=== PATIENT | male | born 1975 | race American Indian/Alaskan Native ===

== ENCOUNTER 2017-08-17 16:08 | Inpatient (IN) | payer BC, OTHER ==
[2017-08-17 16:27] VITALS: BMI 29.1
[2017-08-17 17:12] LABS: EOS % 0.4 % (1.5-5.0); GRAN # 5.33 (1.4-6.5); GRAN % 75.2 % (50.0-68.0); HEMATOCRIT 39.6 % (42.0-52.0); LYMPH # 1.3 (1.2-3.4); LYMPH % 18.3 % (22.0-35.0); MEAN CELL VOLUME 87.4 fl (80.0-105.0); MEAN CORPUSCULAR HEMOGLOBIN 29.6 pg (25.0-35.0); MEAN CORPUSCULAR HGB CONC 33.8 g/dl (31.0-37.0); MONO # 0.4 (0.1-0.6); MONO % 6.1 % (1.0-6.0); RED CELL DISTRIBUTION WIDTH 13.3 % (11.5-14.5); WHITE BLOOD COUNT 7.1 10^3/ul (4.5-11.0)
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
[2017-08-17 17:33] LABS: ALB/GLOB RATIO 1.4 (1.1-1.8); ALKALINE PHOSPHATASE 53 U/L (38-126); ALT/SGPT 49 U/L (7-56); AST/SGOT 62 U/L (17-59); BILIRUBIN,TOTAL 1.2 mg/dL (0.2-1.3); BLOOD UREA NITROGEN 15 mg/dL (7-21); CALCIUM 8.9 mg/dL (8.4-10.5); CARBON DIOXIDE 31 mmol/L (21-33); CHLORIDE 100 mmol/L (98-107); GFR AFRICAN-AMERICAN > 60; GLUCOSE,RANDOM 110 mg/dL (70-110); POTASSIUM 3.5 mmol/L (3.6-5.0); SODIUM 141 mmol/L (132-148); TOTAL PROTEIN 7.3 g/dL (5.8-8.3)
[2017-08-17 17:44] LABS: TROPONIN I < 0.01 ng/mL
[2017-08-17] MEDS ORDERED: Sodium Chloride 0.9% 1,000 ML IV SCH ×2 (18:00→21:00)
[2017-08-17] MEDS ORDERED: Iohexol 350 MG/100 ML VIAL ONE (18:58)
--- NOTE | 2017-08-17 20:31 | CT ---
EXAM: CT Angiography Chest With Intravenous Contrast CLINICAL HISTORY: 41 years old, male; Pain; Chest pain TECHNIQUE: Axial computed tomographic angiography images of the chest with intravenous contrast using pulmonary embolism protocol. All CT scans at this facility use one or more dose reduction techniques, viz.: automated exposure control; ma/kV adjustment per patient size (including targeted exams where dose is matched to indication; i.e. head); or iterative reconstruction technique. MIP reconstructed images were created and reviewed. Coronal and sagittal reformatted images were created and reviewed. CONTRAST: 95 mL of OMNI 350 administered intravenously. COMPARISON: No relevant prior studies available. FINDINGS: Limitations: Streak artifact - mild. Motion artifact - mild. Pulmonary arteries: No definite pulmonary embolism. Aorta: No aneurysm. No dissection. Lungs: Minimal atelectasis. No consolidation. Few pulmonary nodules, up to 0.3cm. Pleural space: No significant effusion. No pneumothorax. Heart: No cardiomegaly. No significant pericardial effusion. Mediastinum: Soft tissue density within anterior mediastinum, likely residual thymus. Bones/joints: Degenerative changes of acromioclavicular joints. No acute fracture. Soft tissues: Unremarkable. Lymph nodes: No pathologically enlarged lymph nodes. IMPRESSION: 1. No definite CT evidence of pulmonary embolism. 2. Pulmonary nodules. For low-risk patients, no follow-up is necessary. For high-risk patients (smoking history or other known risk factors) an optional CT at 12 months could be performed. 3. Incidental/non-acute findings are described above.
[2017-08-17 20:40] LABS: URINE BILIRUBIN NEGATIVE (NEGATIVE); URINE BLOOD TRACE-INTACT (NEGATIVE); URINE GLUCOSE (UA) NEGATIVE (NEGATIVE); URINE KETONE NEGATIVE (NEGATIVE); URINE LEUKOCYTE ESTERASE NEGATIVE Leu/uL (NEGATIVE); URINE PROTEIN NEGATIVE mg/dL (<30 mg/dL); URINE UROBILINOGEN 0.2 E.U./dL (<1 E.U./dL)
[2017-08-17 20:52] LABS: URINE APPEARANCE CLEAR (CLEAR); URINE COLOR YELLOW (YELLOW)
[2017-08-17] MEDS ORDERED: Sodium Chloride 0.9% 1,000 ML IV STA ×2 (20:54→21:01)
[2017-08-17 20:55] LABS: URINE BACTERIA FEW (NEG); URINE RBC 0 - 2 /hpf (0-2)
[2017-08-17 21:11] LABS: INR 1.1 (0.93-1.08); PARTIAL THROMBOPLASTIN TIME 27.3 Seconds (23.7-30.8)
[2017-08-17] MEDS: Sodium Chloride 0.9% 1,000 ML IV SCH (22:39)
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
[2017-08-18 02:17] LABS: MAGNESIUM 1.9 mg/dL (1.7-2.2); PHOSPHOROUS 3.5 mg/dL (2.5-4.5)
[2017-08-18] MEDS: Sodium Chloride 0.9% 1,000 ML IV SCH ×5 (02:39→21:59)
[2017-08-18 02:50] LABS: TROPONIN I < 0.01 ng/mL
--- NOTE | 2017-08-18 07:42 | US ---
EXAM: US Abdomen Complete CLINICAL HISTORY: 41 years old, male; Pain; Abdominal pain; Other: Chest pain; Additional info: Rlq pain TECHNIQUE: Real-time ultrasound of the abdomen (complete) with image documentation. COMPARISON: No relevant prior studies available. FINDINGS: Liver: Liver is slightly enlarged measuring 18.3 CM cranial caudal. Liver echogenicity is normal. No focal liver lesions identified. No intrahepatic bile duct dilation. Gallbladder: The gallbladder is normal. No gallstones. Common bile duct: Tin bile duct is normal in caliber measuring 0.4 dose or a 0.5 CM. No stones. No dilation. Pancreas: The pancreas is normal. Kidneys: The right kidney is normal. The left kidney is normal. No stones. No hydronephrosis. Spleen: The spleen is normal. Aorta: Visualized abdominal aorta and IVC are unremarkable. Inferior vena cava: See above. IMPRESSION: No acute findings. Mild hepatomegaly.
[2017-08-18 07:50] LABS: HEMATOCRIT 39.3 % (42.0-52.0); MEAN CELL VOLUME 87.7 fl (80.0-105.0); MEAN CORPUSCULAR HEMOGLOBIN 29.2 pg (25.0-35.0); MEAN CORPUSCULAR HGB CONC 33.3 g/dl (31.0-37.0); MEAN PLATELET VOLUME 10.1 fl (7.0-11.0); RED CELL DISTRIBUTION WIDTH 13.3 % (11.5-14.5); WHITE BLOOD COUNT 4.5 10^3/ul (4.5-11.0)
[2017-08-18 08:01] LABS: ALB/GLOB RATIO 1.3 (1.1-1.8); ALKALINE PHOSPHATASE 51 U/L (38-126); ALT/SGPT 42 U/L (7-56); AST/SGOT 54 U/L (17-59); BILIRUBIN,DIRECT 0.1 mg/dL (0.0-0.4); BILIRUBIN,TOTAL 1.5 mg/dL (0.2-1.3); BLOOD UREA NITROGEN 13 mg/dL (7-21); CALCIUM 8.1 mg/dL (8.4-10.5); CARBON DIOXIDE 30 mmol/L (21-33); CHLORIDE 107 mmol/L (98-107); GFR AFRICAN-AMERICAN > 60; GLUCOSE,RANDOM 103 mg/dL (70-110); MAGNESIUM 1.9 mg/dL (1.7-2.2); PHOSPHOROUS 2.4 mg/dL (2.5-4.5); POTASSIUM 3.5 mmol/L (3.6-5.0); SODIUM 144 mmol/L (132-148); TOTAL PROTEIN 6.6 g/dL (5.8-8.3)
[2017-08-18 08:13] LABS: TROPONIN I < 0.01 ng/mL
[2017-08-18] MEDS ORDERED: Potassium Phosphate 15 MMOLE in Sodium Chloride 0.9% 250 ML IVPB ONE ×2 (09:12→15:30)
[2017-08-18] MEDS: Enoxaparin 40 mg Syringe SC SCH (09:32)
[2017-08-18] MEDS ORDERED: Potassium Phosphate 15 MMOLE in Sodium Chloride 0.9% 250 ML IVPB SCH ×2 (12:00→12:15)
--- NOTE | 2017-08-18 12:21 | CARD ---
APPROVED REPORT EKG Measurement Heart [id number] MD [id number] <Conclusion> Normal sinus rhythm Normal ECG
[2017-08-18] MEDS ORDERED: Pneumococcal 23-Valent Vaccine IM ONE (13:22)
[2017-08-18] MEDS ORDERED: Influenza Vaccine 60 mcg/0.5 mL SYR (4YR UP) IM ONE (13:22)
[2017-08-18 14:30] LABS: TROPONIN I < 0.01 ng/mL
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
--- NOTE | 2017-08-18 19:27 | CARD ---
APPROVED REPORT EXAM: Two-dimensional and M-mode echocardiogram with Doppler and color Doppler. INDICATION Chest Pain 2D DIMENSIONS Left Atrium (2D)3.9 (1.6-4.0cm)IVSd1.4 (0.7-1.1cm) LVDd4.7 (3.9-5.9cm)PWd1.2 (0.7-1.1cm) LVDs3.1 (2.5-4.0cm)FS (%) 34.3 % LVEF (%)63.1 (>50%) M-Mode DIMENSIONS Aortic Root3.10 (2.2-3.7cm)Aortic Cusp Exc.2.10 (1.5-2.0cm) Aortic Valve AoV Peak Kegozkye754.0cm/Eduin Peak GR.5mmHg Mitral Valve MV E Aewpojyf28.8cm/sMV A Bfrqfoon90.9cm/sE/A ratio1.5 TDI E/Lateral E'0.0E/Medial E'0.0 Tricuspid Valve TR Peak Onzwbkvi652ju/sRAP PRVOXWFW61ptGhUJ Peak Gr.18mmHg [id number] LEFT VENTRICLE The left ventricle is normal size. There is mild concentric left ventricular hypertrophy. The left ventricular function is normal. The left ventricular ejection fraction is within the normal range. There is normal LV segmental wall motion. Transmitral Doppler flow pattern is normal for age. RIGHT VENTRICLE The right ventricle is normal size. There is normal right ventricular wall thickness. The right ventricular systolic function is normal. ATRIA The left atrium is borderline dilated. The right atrium size is normal. AORTIC VALVE The aortic valve is mildly thickened. No aortic regurgitation is present. There is no aortic valvular stenosis. MITRAL VALVE The mitral valve is normal in structure. There is no mitral valve regurgitation noted. TRICUSPID VALVE The tricuspid valve is normal in structure. There is no tricuspid valve regurgitation noted. GREAT VESSELS The aortic root is normal in size. The IVC is dilated. The IVC collapses <50% with inspiration. PERICARDIAL EFFUSION There is no pericardial effusion. <Conclusion> The left ventricle is normal size. There is mild concentric left ventricular hypertrophy. The left ventricular function is normal. The left ventricular ejection fraction is within the normal range. There is normal LV segmental wall motion.
[2017-08-18 20:38] LABS: TROPONIN I < 0.01 ng/mL
[2017-08-19] MEDS: Enoxaparin 40 mg Syringe SC SCH (09:36)
[2017-08-19 09:41] LABS: BASO # 0.01 K/mm3 (0.0-2.0); BASO % 0.3 % (0.0-3.0); EOS # 0.1 (0.0-0.7); GRAN # 2.25 (1.4-6.5); GRAN % 60.6 % (50.0-68.0); HEMATOCRIT 37.1 % (42.0-52.0); LYMPH # 1.1 (1.2-3.4); LYMPH % 29.9 % (22.0-35.0); MEAN CELL VOLUME 87.7 fl (80.0-105.0); MEAN CORPUSCULAR HEMOGLOBIN 29.6 pg (25.0-35.0); MEAN CORPUSCULAR HGB CONC 33.7 g/dl (31.0-37.0); MEAN PLATELET VOLUME 10.1 fl (7.0-11.0); MONO # 0.2 (0.1-0.6); MONO % 6.2 % (1.0-6.0); RED CELL DISTRIBUTION WIDTH 13.1 % (11.5-14.5); WHITE BLOOD COUNT 3.7 10^3/ul (4.5-11.0)
[2017-08-19 09:50] LABS: ALB/GLOB RATIO 1.3 (1.1-1.8); ALKALINE PHOSPHATASE 53 U/L (38-126); ALT/SGPT 69 U/L (7-56); AST/SGOT 69 U/L (17-59); BILIRUBIN,DIRECT 0.1 mg/dL (0.0-0.4); BILIRUBIN,TOTAL 1.2 mg/dL (0.2-1.3); BLOOD UREA NITROGEN 11 mg/dL (7-21); CALCIUM 7.9 mg/dL (8.4-10.5); CARBON DIOXIDE 28 mmol/L (21-33); CHLORIDE 108 mmol/L (98-107); GFR AFRICAN-AMERICAN > 60; GLUCOSE,RANDOM 87 mg/dL (70-110); MAGNESIUM 1.8 mg/dL (1.7-2.2); PHOSPHOROUS 2.5 mg/dL (2.5-4.5); POTASSIUM 3.6 mmol/L (3.6-5.0); SODIUM 143 mmol/L (132-148)
[2017-08-19 10:02] LABS: TROPONIN I < 0.01 ng/mL
[2017-08-19] MEDS ORDERED: Potassium Chloride 20 mEq ER Tab PO ONE (10:58)
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
[2017-08-19 18:33] VITALS: RESP 20
--- NOTE | 2017-08-19 22:14 | CARD ---
APPROVED REPORT EKG Measurement Heart [id number] <Conclusion> Marked sinus bradycardia with sinus arrhythmia with 1st degree AV block Abnormal ECG
[2017-08-20] MEDS: Sodium Chloride 0.9% 1,000 ML IV SCH ×3 (00:38→06:36)
[2017-08-20] MEDS ORDERED: Pantoprazole 40 mg EC Tab PO SCH (06:00)
[2017-08-20 07:24] LABS: BASO # 0.02 K/mm3 (0.0-2.0); BASO % 0.5 % (0.0-3.0); EOS # 0.2 (0.0-0.7); EOS % 4.7 % (1.5-5.0); GRAN # 2.3 (1.4-6.5); GRAN % 60.5 % (50.0-68.0); HEMATOCRIT 39.6 % (42.0-52.0); LYMPH % 26.1 % (22.0-35.0); MEAN CELL VOLUME 86.8 fl (80.0-105.0); MEAN CORPUSCULAR HEMOGLOBIN 28.7 pg (25.0-35.0); MEAN CORPUSCULAR HGB CONC 33.1 g/dl (31.0-37.0); MEAN PLATELET VOLUME 10.4 fl (7.0-11.0); MONO # 0.3 (0.1-0.6); MONO % 8.2 % (1.0-6.0); RED CELL DISTRIBUTION WIDTH 12.9 % (11.5-14.5); WHITE BLOOD COUNT 3.8 10^3/ul (4.5-11.0)
[2017-08-20 08:09] LABS: ALB/GLOB RATIO 1.3 (1.1-1.8); ALKALINE PHOSPHATASE 55 U/L (38-126); ALT/SGPT 71 U/L (7-56); AST/SGOT 48 U/L (17-59); BILIRUBIN,DIRECT 0.2 mg/dL (0.0-0.4); BILIRUBIN,TOTAL 1.3 mg/dL (0.2-1.3); BLOOD UREA NITROGEN 7 mg/dL (7-21); CALCIUM 8.2 mg/dL (8.4-10.5); CARBON DIOXIDE 32 mmol/L (21-33); CHLORIDE 105 mmol/L (95-110); GFR AFRICAN-AMERICAN > 60; GLUCOSE,RANDOM 96 mg/dL (70-110); MAGNESIUM 1.9 mg/dL (1.7-2.2); PHOSPHOROUS 2.8 mg/dL (2.5-4.5); POTASSIUM 3.9 mmol/L (3.6-5.0); SODIUM 142 mmol/L (132-148); TOTAL PROTEIN 6.7 g/dL (5.8-8.3)
[2017-08-20 09:04] VITALS: BP 139/83; PULSE 59; TEMP 97.6; O2SAT 100
[2017-08-20] MEDS: Enoxaparin 40 mg Syringe SC SCH (09:50)
--- NOTE | 2017-08-20 21:29 | CARD ---
APPROVED REPORT EKG Measurement Heart [id number] <Conclusion> Sinus bradycardia with 1st degree AV block Otherwise normal ECG
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
== END 2017-08-20 14:07 | disposition home or self-care (01) | DRG 605 ==
LOC: ED 16:08 → ERH 21:03 → OBSVTOIN 08-18 11:20 → ERH 08-18 12:00 → 3RSO 08-18 13:13
PROVIDERS: ADMIT Internal Medicine; ATTEND Internal Medicine
DX: S20.219A Contusion of unspecified front wall of thorax, initial encounter (principal); M62.82 Rhabdomyolysis; J98.11 Atelectasis; D61.818 Other pancytopenia; R07.89 Other chest pain; E83.39 Other disorders of phosphorus metabolism; I11.9 Hypertensive heart disease without heart failure; R16.0 Hepatomegaly, not elsewhere classified; I08.1 Rheumatic disorders of both mitral and tricuspid valves; E87.6 Hypokalemia; R31.29 Other microscopic hematuria; I51.7 Cardiomegaly; M47.894 Other spondylosis, thoracic region; R91.1 Solitary pulmonary nodule; M19.019 Primary osteoarthritis, unspecified shoulder; I44.0 Atrioventricular block, first degree; V49.9XXA Car occupant (driver) (passenger) injured in unspecified traffic accident, initial encounter; Y92.410 Unspecified street and highway as the place of occurrence of the external cause